=== PATIENT | male | born 1985 | race Caucasian/White ===

== ENCOUNTER 2017-03-30 14:45 | Emergency (ER) | payer MEDICAID ==
[~2017-03-30] VITALS: Ht 172.7 cm; Wt 84.1 kg
[2017-03-30 17:31] VITALS: BP 128/77
== END 2017-03-30 17:31 | disposition home or self-care (01) ==
LOC: ED 14:45
DX: Z00.8 Encounter for other general examination (principal)
CPT/HCPCS: 87491; 87591